=== PATIENT | female | born 1995 | race Two or more races ===

== ENCOUNTER 2020-11-06 16:04 | Emergency (ER) | payer SELFPAY ==
[~2020-11-06] VITALS: Ht 157.5 cm; Wt 56.7 kg
[2020-11-06] MEDS ORDERED: ONDANSETRON 4 MG TAB.RAPDIS ONE (17:06)
[2020-11-06] MEDS ORDERED: HYDROCODONE/APAP 5/325MG TABLET ONE (17:06)
[2020-11-06] MEDS: HYDROCODONE/APAP 5/325MG TABLET PO ONE (17:08)
[2020-11-06] MEDS: ONDANSETRON 4 MG TAB.RAPDIS SL ONE (17:08)
[2020-11-06] MEDS ORDERED: IBUP-1955 PO (18:08)
[2020-11-06 18:15] LABS: BILIRUBIN,URINE Negative (NEGATIVE); COLOR,URINE YELLOW (YELLOW); LEUKOCYTE ESTERASE ,URINE Trace (NEGATIVE); NITRITE, URINE Negative (NEGATIVE); PROTEIN,URINE Negative (NEGATIVE); UGLUCOSE Negative (NEGATIVE); UROBILINOGEN,URINE 0.2 EU/dL (0.2)
--- NOTE | 2020-11-06 18:20 | NUR ---
Pt states "feeling better" Patient discharged to home in stable condition. Written and verbal after care instructions given. Patient verbalizes understanding of instruction.
[2020-11-06 18:22] LABS: BACTERIA,URINE Few /HPF (None Seen); RBC,URINE NONE SEEN /HPF (0-2); SQUAMOUS EPITHELIAL CELL,UR Few /HPF (None Seen)
[2020-11-06 18:35] VITALS: BP 136/71
== END 2020-11-06 18:35 | disposition home or self-care (01) ==
LOC: ER 16:10
DX: R10.2 Pelvic and perineal pain (principal); N94.0 Mittelschmerz
CPT/HCPCS: 76856; 81001; 84703; 99284; Q0162